=== PATIENT | female | born 1950 | race Caucasian/White ===

== ENCOUNTER 2020-06-07 14:28 | Inpatient (IN) | payer MEDICARE, SELFPAY ==
[2020-06-07 14:34] VITALS: BP 113/40; PULSE 69; RESP 22; TEMP 36.9; O2SAT 100; BMI 24.1
--- NOTE | 2020-06-07 14:35 | CT_ITS ---
EXAMINATION: CT ABDOMEN AND PELVIS WITHOUT CONTRAST CLINICAL INFORMATION: Left flank pain. Evaluate for kidney stone. COMPARISON: None TECHNIQUE: Multidetector volumetric imaging was performed from the superior aspect of the liver through the pubic symphysis. Sagittal and coronal reformatted images were obtained on the technologist's workstation. This CT examination was performed using dose optimization techniques as appropriate, variously including the following: *Automated exposure control *Adjustment of mA and/or kV according to patient size (this includes techniques or standardized protocols for targeted exams where dose is matched to indication/reason for exam; i.e. extremities or head) *Use of iterative reconstruction technique DLP: 390 mGy-cm FINDINGS: LUNG BASES: Mild atelectasis in dependent aspect of right lower lobe. No pulmonary consolidation or pleural effusion at either lung base. LIVER: The liver has normal size, shape, and attenuation. No focal liver lesion. GALLBLADDER AND BILIARY TREE: No radiopaque gallstones, wall thickening or pericholecystic fluid. No intrahepatic or extrahepatic bile duct dilatation. PANCREAS: Normal. No evidence of pancreatic ductal dilatation or mass. SPLEEN: Normal. ADRENAL GLANDS: Normal. KIDNEYS AND URETERS: Kidneys are normal in size. No right or left renal calculi. Mild left hydroureteronephrosis is caused by a stone measuring up to 0.4 cm in the distal ureter, located 1 cm above the level of the ureterovesical junction. BOWEL AND PERITONEUM: Stomach is unremarkable. No dilated loops of bowel. There appears to be prior appendectomy with small residual appendiceal stump. No focal bowel wall thickening or mesenteric fat stranding. No ascites or pneumoperitoneum. ABDOMINAL WALL: Unremarkable. VASCULATURE: Mild atherosclerosis of the abdominal aorta without aneurysm. LYMPH NODES: No pathologic sized lymph nodes in the abdomen or pelvis. No inguinal lymphadenopathy. BLADDER AND PELVIC VISCERA: The urinary bladder has a normal appearance. No bladder calculi. There are a few calcified intramural leiomyomas of the uterus. No adnexal mass. No pelvic free fluid. SKELETAL: Bones appear to be diffusely osteopenic. Transitional lumbosacral anatomy. 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 Tarlov cyst of the sacrum. No suspicious bone lesion. CT/CT abdomen pelvis wo con IMPRESSION: * Mild left hydronephrosis is caused by 0.4 cm calculus located just proximal to the ureterovesical junction. * No evidence of inflammatory change or obstruction along the gastrointestinal tract. * The uterus has a few intramural leiomyomas. * Transitional lumbosacral anatomy, severe facet osteoarthritis and degenerative, grade 1 anterolisthesis of L5 on S1.
--- NOTE | 2020-06-07 14:39 | ED.ABDPAIN ---
HPI - Abdominal Pain General Chief Complaint: Abdominal Pain Stated Complaint: flank pain Time Seen by Provider: 06/07/20 14:35 Source: patient and EMS Mode of arrival: EMS Limitations: no limitations History of Present Illness HPI narrative: 69-year-old female brought in by ambulance for left-sided flank/groin pain, pain started 1 hour before arrival as a sudden onset in the left groin area that radiated to the left flank area, pain is constant for 1 hour, associated with nausea and vomiting, pain was described as severe and dull 03/06, nothing relieved the pain, nothing makes the pain worse. Patient had similar pain when she had history of kidney stones, patient received 60 microg of fentanyl by EMS with no relief of her symptoms. Related Data Home Medications Medication Instructions Recorded Confirmed No Known Home Meds 06/07/20 06/07/20 Allergies Allergy/AdvReac Type Severity Reaction Status Date / Time Penicillins [PENICILLINS] Allergy Unknown RASH Unverified 03/13/20 18:28 Review of Systems Review of Systems All other systems are reviewed and are negative Constitutional: Reports as per HPI and Reports no additional constitutional complaints Eyes: Reports as per HPI and Reports no additional eye complaints Reports system reviewed and no additional complaints, except as documented Cardiovascular: Reports as per HPI and Reports no additional cardiovascular complaints Respiratory: Reports as per HPI and Reports no additional respiratory complaints Gastrointestinal: Reports as per HPI and Reports no additional gastrointestinal complaints Genitourinary: Reports no additional female genitourinary complaints Musculoskeletal: Reports no additional musculoskeletal complaints Skin/Breast: Reports system reviewed and no additional complaints, except as docu Psychiatric: Reports no additional psychiatric complaints Endocrine: Reports no additional endocrine complaints Hematologic/Lymphatic: Reports no additional hematologic/lymphatic complaints Allergic/Immunologic: Reports no additional allergic/immunologic complaints Reports system reviewed and no additional complaints, except as documented and Reports Abnormal speech present Physical Exam Vital Signs: Vital Signs: Last Vital Signs Temp 98.4 F 06/07/20 14:34 Pulse 69 06/07/20 14:34 Resp 22 H 06/07/20 16:36 BP 113/40 L 06/07/20 14:34 Pulse Ox 100 06/07/20 14:34 Body Mass Index 24.1 Vital signs have been reviewed as normal and appeared to be correct. Blood pressure normal. Heart rate normal. Respiration rate normal. Temperature normal. Oxygen saturation normal. Appearance: Alert. Oriented X3. In acute distress due to left flank pain.. Head: Normal external exam. Normocephalic. Atraumatic. No Pradhan signs noted. No raccoon eyes noted Eyes: PERRLA. EOMI. Conjunctiva and sclera normal. Eyelids normal. ENT: EAC normal. TM's Normal. Pharynx normal. Uvula midline. Moist mucous membranes. No trismus noted. No drooling noted. No muffled voice noted. Neck: Normal inspection. Neck supple. FROM. No adenopathy. Thyroid Normal. No meningeal signs. No neck mass noted. CVS: Normal heart rate and rhythm. Heart sound normal. No murmurs noted. Pulses normal throughout. Respiratory: No respiratory distress. Painless inspiration. Breath sounds normal. No wheezes/rales/rhonchi noted. Chest nontender. No accessory muscle usage noted or decreased air movement noted. Abdomen: Soft and nontender. Bowel sounds normal in all 4 quadrants. No distention noted. No organomegaly noted. No visible injury noted. Back: Significant left CVA tenderness. Full range of motion noted. Skin: Skin warm and dry. Normal skin color. Normal skin turgor. No rashes/lesions/lacerations noted. Extremities: No lower extremity edema. Extremities exhibit normal range of motion. Extremities nontender. Neuro: Oriented X 3. No motor deficit. No sensory deficit. Reflexes normal. MDM - Abdominal Pain MDM Narrative Medical decision making narrative: Assessment and plan. 69-year-old female with history of kidney stone presented with left flank pain, CT of the abdomen pelvis showed 4 mm left UVJ stone with hydronephrosis, patient showing no sign of UTI or infection. Leukocytosis and tachypnea is likely due to pain. Patient required multiple doses of fentanyl/Dilaudid/Toradol and patient will require inpatient pain control and urological procedure in the a.m.. The case discussed with Dr. Warner from Urology who agreed to admit to Medicine and he will consult. Lab Data Result diagrams: 06/07/20 15:45 06/07/20 15:45 Labs: Lab Results 06/07/20 06/07/20 06/07/20 Range/Units 15:45 15:45 16:08 WBC 13.3 H (4.8-10.8) X10*3/uL RBC 3.83 L (4.20-5.50) X10*6/uL Hgb 12.0 (12.0-16.0) g/dl Hct 36.0 L (37-47) % MCV 94.0 (80-98) fL MCH 31.3 (27.0-33.0) pg MCHC 33.3 (31.0-35.0) g/dl RDW 12.2 (11.0-16.0) % Plt Count 326 (160-400) X10*3/uL MPV 9.4 (9.4-12.3) fL Immature Gran % (Auto) 0.3 (0.0-0.4) % Neut % (Auto) 84.0 H (45-73) % Lymph % (Auto) 9.8 L (20-40) % [place] % (Auto) 3.9 (2-11) % Eos % (Auto) 1.5 (0-4) % Baso % (Auto) 0.5 (0-2) % Lymph # (Auto) 1.3 (1.2-4.9) X10*3/uL [place] # (Auto) 0.5 (0.1-1.2) X10*3/uL Eos # (Auto) 0.2 (0.0-0.4) X10*3/uL Baso # (Auto) 0.1 (0.0-0.2) X10*3/uL Abs Immat Gran (auto) 0.04 H (0.00-0.03) X10*3/uL Absolute Neuts (auto) 11.2 H (2.0-8.3) X10*3/uL Absolute Nucleated RBC 0.000 (0.0-0.012) X10*3/uL Nucleated RBC % (auto) 0.0 (0.0-0.2) /100WBC Sodium 136 (135-145) mmol/L Potassium 4.6 (3.3-5.1) mmol/l Chloride 105 (96-108) mmol/L Carbon Dioxide 25 (22-29) mmol/L Anion Gap 11 L (12-20) BUN 13 (9-16) mg/dL Creatinine 0.69 (0.5-1.4) mg/dL Estim Creat Clear Calc 62.6 Estimated GFR > 60 Random Glucose 98 (60-115) mg/dL Calcium 8.2 L (8.4-10.2) mg/dL Total Bilirubin 0.4 (0.0-1.0) mg/dL Direct Bilirubin 0.2 (0.0-0.5) mg/dL AST 19 (5-31) U/L ALT 22 (0-31) U/L Alkaline Phosphatase 66 (39-117) U/L Total Protein 6.2 L (6.5-8.0) g/dL Albumin 3.9 (3.5-5.0) g/dL Lipase 25 (8-78) U/L Urine Color YELLOW Urine Appearance CLEAR Urine pH 5.5 (5.0-8.0) Ur Specific [place] 1.025 (1.005-1.025) Urine Protein NEG (NEG-TRACE) MG/DL Urine Glucose (UA) NEG (NEG) MG/DL Urine Ketones 40 (NEG) MG/DL Urine Blood 3+ H (NEG) Urine Nitrite NEG (NEG) Ur Leukocyte Esterase NEG (NEG) Urine RBC 15-29 H (0) /HPF Urine WBC 0-2 (0-4) /HPF Ur Squamous Epith Cells NONE /LPF Urine Bacteria NONE /LPF Urine Mucus 1+ /LPF Imaging Data CT scan - abdomen: Radiologist's impression: * Mild left hydronephrosis is caused by 0.4 cm calculus located just proximal to the ureterovesical junction. * No evidence of inflammatory change or obstruction along the gastrointestinal tract. * The uterus has a few intramural leiomyomas. * Transitional lumbosacral anatomy, severe facet osteoarthritis and degenerative, grade 1 anterolisthesis of L5 on S1 Discharge Plan Discharge Clinical Impression: Calculus of kidney Patient Disposition: Admitted As Inpatient Prescriptions: No Action No Known Home Meds RF: 0 PMFSH Past Medical History Medical History Cervical cancer Kidney calculi PFO (patent foramen ovale) Social History Social History Advance Directives: No Advance Directives Information Provided: No
[2020-06-07] MEDS: 0.9 % Sodium Chloride 1,000 ML 999 ML IVCONT ×3 (14:50→17:04)
[2020-06-07] MEDS: ondansetron HCL 4 MG/2 ML VIAL IVPUSH (14:50)
[2020-06-07] MEDS: Ketorolac Tromethamine 15 MG/ML VIAL IV ×2 (14:51→20:30)
[2020-06-07] MEDS: HYDROmorphone HCl 1 MG/ML SYRINGE IVPUSH ×2 (14:51→16:36)
[2020-06-07 15:51] LABS: Basophils Absolute Auto 0.1 X10*3/uL (0.0-0.2); Basophils Percent Auto 0.5 % (0-2); Eosinophils Absolute Auto 0.2 X10*3/uL (0.0-0.4); Eosinophils Percent Auto 1.5 % (0-4); Imm Gran Abs Auto 0.04 X10*3/uL (0.00-0.03); Imm Gran Pct Auto 0.3 % (0.0-0.4); Lymphocytes Absolute Auto 1.3 X10*3/uL (1.2-4.9); Lymphocytes Percent Auto 9.8 % (20-40); MANUAL DIFF FLAG NO; Mean Corpuscular HGB Conc 33.3 g/dl (31.0-35.0); Mean Corpuscular Hemoglobin 31.3 pg (27.0-33.0); Mean Platelet Volume 9.4 fL (9.4-12.3); Monocytes Absolute Auto 0.5 X10*3/uL (0.1-1.2); Monocytes Percent Auto 3.9 % (2-11); Neutrophils Absolute Auto 11.2 X10*3/uL (2.0-8.3); Platelet Count 326 X10*3/uL (160-400); Red Blood Count 3.83 X10*6/uL (4.20-5.50); Red Cell Distribution Width 12.2 % (11.0-16.0); White Blood Count 13.3 X10*3/uL (4.8-10.8)
[2020-06-07 16:16] LABS: Appearance Urine CLEAR; Color Urine YELLOW; Glucose Urine UA NEG (NEG); Leukocyte Esterase Urine NEG (NEG); Nitrite Urine NEG (NEG); PH 5.5 (5.0-8.0); Specific Gravity - Urine 1.025 (1.005-1.025); Urine Blood 3+ (NEG); Urine Ketones 40 MG/DL (NEG); Urine Protein NEG (NEG-TRACE)
[2020-06-07 16:26] LABS: Alanine Aminotransferase 22 U/L (0-31); Albumin Level 3.9 g/dL (3.5-5.0); Alkaline Phosphatase 66 U/L (39-117); Anion Gap 11 (12-20); Aspartate Amino Transferase 19 U/L (5-31); Bilirubin Direct 0.2 mg/dL (0.0-0.5); Bilirubin Total 0.4 mg/dL (0.0-1.0); Blood Urea Nitrogen 13 mg/dL (9-16); Calcium 8.2 mg/dL (8.4-10.2); Carbon Dioxide 25 mmol/L (22-29); Chloride 105 mmol/L (96-108); Creatinine Clr Calc Pharmacy 62.6; Estimated Glomerular Filt Rate > 60; Glucose Random 98 mg/dL (60-115); Lipase 25 U/L (8-78); Potassium 4.6 mmol/l (3.3-5.1); Sodium 136 mmol/L (135-145); Total Protein 6.2 g/dL (6.5-8.0)
[2020-06-07 16:29] LABS: Mucus Urine 1+ /LPF
[2020-06-07 16:30] LABS: WBC Urine 0-2 /HPF (0-4)
[2020-06-07 16:36] VITALS: RESP 22
--- NOTE | 2020-06-07 17:02 | PM.EVENT ---
Event Note Date of Service: 06/07/20 Event Note: Patient seen and examined independently and was present during castaneda portion of E/M service. Agree with midlevel's history, physical, assessment, and plan. 69F presented with left flank pain nephrolithiasis pain control, IVF, npo after midnight, flomax
[2020-06-07 17:07] VITALS: RESP 16
[2020-06-07 17:30] LABS: COVID-19 Test Negative (Negative); IDNOW Serial# 9DD0AD1C
--- NOTE | 2020-06-07 17:32 | P.HPHOSP_ITS ---
History of Present Illness Date of Service: 06/07/20 Chief Complaint: Left flank pain This is a 69-year-old female who presented to the emergency department today with history of left flank pain. She reports the pain started suddenly about 2 hours before she presented to the emergency department. She reports associated nausea, vomiting, chills. She denies any dysuria, hematuria, fever. Her pain is severe and has required multiple doses of narcotics. It is located in the left flank and wraps around toward the left groin.Lab work was significant for leukocytosis of 13.3. The remainder of her lab work was unremarkable she underwent a CT scan of the abdomen which showed mild left hydronephrosis and 4 mm calculus located proximal to the ureterovesicular junction. Emergency room provider discussed the case with Urology who felt the patient should be admitted to the medical service and they would consult in the morning. Review of Systems Review of Systems: Yes all other systems are reviewed and are negative Constitutional: Constitutional: Reports chills and Denies fever(s) Cardiovascular: Cardiovascular: Denies chest pain Respiratory: Respiratory: Denies cough Genitourinary: Genitourinary: Denies dysuria, Reports flank pain, Denies urinary incontinence, Denies urinary hesitancy and Denies urinary urgency [facility] Medical History Cervical cancer Kidney calculi PFO (patent foramen ovale) Family History (Updated 06/07/20 @ 17:41 by LUCHO Thacker) Father Heart disease Surgical History (Updated 06/07/20 @ 17:41 by LUCHO Thacker) History of appendectomy Social History (Updated 06/07/20 @ 17:41 by LUCHO Thacker) Alcohol intake: current Alcohol intake frequency: a few times a week Smoking Status: Never smoker Smoked in Last 30 Days: No Use of substances other than those prescribed or required for medical reasons: Yes Substance Use Type: Marijuana Advance Directives: No Advance Directives Information Provided: No Meds Allergies Allergy/AdvReac Type Severity Reaction Status Date / Time Penicillins [PENICILLINS] Allergy Unknown RASH Unverified 03/13/20 18:28 Home Medications Medication Instructions Recorded Confirmed Type No Known Home Meds 06/07/20 06/07/20 History Physical Exam Vital Signs and Narrative: Vital Signs: Last Vital Signs Temp 98.4 F 06/07/20 14:34 Pulse 69 06/07/20 14:34 Resp 16 06/07/20 17:07 BP 113/40 L 06/07/20 14:34 Pulse Ox 100 06/07/20 14:34 Body Mass Index 24.1 Const: Other: appears uncomfortable Nutritional Appearance: well nourished Orientation/consciousness: patient oriented x3 HENMT: Head: Yes normocephalic and Yes atraumatic Eyes: Sclerae: sclerae normal Chest: Chest palpation & inspection: normal inspection of the chest Resp: Effort & Inspection: normal respiratory effort and no respiratory distress Auscultation: clear to auscultation bilaterally Cardio: Rate: regular rate Rhythm: regular rhythm GI: Palpation (GI): Soft to palpation : General: Yes CVA tenderness on the left Back/Spine/Pelvis: Back: CVA tenderness Skin: General skin exam: no rashes or lesions noted Neuro: General: patient oriented x3 Cranial nerves: Yes CN's II-XII intact bilaterally and Yes Bilaterally intact EOM present Extrem: General: Yes normal to inspection Results Labs CBC and Chem 7: 06/07/20 15:45 06/07/20 15:45 Labs: Laboratory Results - last 24 hr 06/07/20 06/07/20 06/07/20 15:45 15:45 16:08 MCV 94.0 MCH 31.3 MCHC 33.3 RDW 12.2 Plt Count 326 MPV 9.4 Immature Gran % (Auto) 0.3 Neut % (Auto) 84.0 H Lymph % (Auto) 9.8 L [place] % (Auto) 3.9 Eos % (Auto) 1.5 Baso % (Auto) 0.5 Lymph # (Auto) 1.3 [place] # (Auto) 0.5 Eos # (Auto) 0.2 Baso # (Auto) 0.1 Abs Immat Gran (auto) 0.04 H Absolute Neuts (auto) 11.2 H Absolute Nucleated RBC 0.000 Nucleated RBC % (auto) 0.0 Anion Gap 11 L Estim Creat Clear Calc 62.6 Estimated GFR > 60 Random Glucose 98 Calcium 8.2 L Total Bilirubin 0.4 Direct Bilirubin 0.2 AST 19 ALT 22 Alkaline Phosphatase 66 Total Protein 6.2 L Albumin 3.9 Lipase 25 Urine Color YELLOW Urine Appearance CLEAR Urine pH 5.5 Ur Specific [place] 1.025 Urine Protein NEG Urine Glucose (UA) NEG Urine Ketones 40 Urine Blood 3+ H Urine Nitrite NEG Ur Leukocyte Esterase NEG Urine RBC 15-29 H Urine WBC 0-2 Ur Squamous Epith Cells NONE Urine Bacteria NONE Urine Mucus 1+ COVID-19 (S[facility]ILA) COVID-19 Clin Com 06/07/20 17:02 MCV MCH MCHC RDW Plt Count MPV Immature Gran % (Auto) Neut % (Auto) Lymph % (Auto) [place] % (Auto) Eos % (Auto) Baso % (Auto) Lymph # (Auto) [place] # (Auto) Eos # (Auto) Baso # (Auto) Abs Immat Gran (auto) Absolute Neuts (auto) Absolute Nucleated RBC Nucleated RBC % (auto) Anion Gap Estim Creat Clear Calc Estimated GFR Random Glucose Calcium Total Bilirubin Direct Bilirubin AST ALT Alkaline Phosphatase Total Protein Albumin Lipase Urine Color Urine Appearance Urine pH Ur Specific [place] Urine Protein Urine Glucose (UA) Urine Ketones Urine Blood Urine Nitrite Ur Leukocyte Esterase Urine RBC Urine WBC Ur Squamous Epith Cells Urine Bacteria Urine Mucus COVID-19 (SHEILA) Negative COVID-19 Clin Com See Note Imaging Radiologist's Impressions: Impressions Abdomen/Pelvis CT 06/07/20 14:35 IMPRESSION: * Mild left hydronephrosis is caused by 0.4 cm calculus located just proximal to the ureterovesical junction. * No evidence of inflammatory change or obstruction along the gastrointestinal tract. * The uterus has a few intramural leiomyomas. * Transitional lumbosacral anatomy, severe facet osteoarthritis and degenerative, grade 1 anterolisthesis of L5 on S1. Assessment and Plan (1) Calculus of kidney: Status: Acute This is a 69-year-old female with no significant past medical history presents to the emergency department left-sided flank pain found to have kidney stone Left-sided kidney stone mild hydronephrosis -Flomax -pain control -IV fluid -urology consult Leukocytosis. likely reactive UA negative no evidence of sepsis DVT prophylaxis-mechanical devices Code status-full code This case was discussed with Dr. Davis
--- NOTE | 2020-06-07 18:42 | PC.NURSE ---
call to med surg
[2020-06-07 20:00] VITALS: BP 118/52; PULSE 70; RESP 14; TEMP 36.7; O2SAT 97
[2020-06-07] MEDS: 0.9 % Sodium Chloride 1,000 ML 125 ML IVCONT (20:21)
[2020-06-07] MEDS: Tamsulosin HCL 0.4 MG CAPSULE PO (20:22)
[2020-06-07] MEDS: methylPREDNISolone Sod Succ/PF 125 MG/2 ML VIAL IVPUSH ×2 (20:22→20:29)
[2020-06-07] MEDS: HYDROmorphone HCl 0.5 MG/0.5 ML SYRINGE IVPUSH (22:31)
[2020-06-07 23:40] VITALS: BP 114/58; PULSE 78; RESP 19; TEMP 36.7; O2SAT 94
[2020-06-08] MEDS: Ketorolac Tromethamine 15 MG/ML VIAL IV ×4 (02:53→21:12)
[2020-06-08] MEDS: 0.9 % Sodium Chloride 1,000 ML 125 ML IVCONT ×2 (02:54→16:00)
[2020-06-08 03:18] VITALS: BP 106/61; PULSE 87; RESP 19; TEMP 36.2; O2SAT 94
[2020-06-08 07:41] VITALS: BP 98/56; PULSE 80; RESP 18; TEMP 532.1; TEMP 989.7; O2SAT 98
[2020-06-08 07:48] LABS: MANUAL DIFF FLAG NO
[2020-06-08 07:51] LABS: Basophils Percent Auto 0.2 % (0-2); Eosinophils Percent Auto 0.2 % (0-4); Hemoglobin 12.5 g/dl (12.0-16.0); Imm Gran Abs Auto 0.04 X10*3/uL (0.00-0.03); Imm Gran Pct Auto 0.6 % (0.0-0.4); Lymphocytes Percent Auto 15.7 % (20-40); Mean Corpuscular HGB Conc 33.8 g/dl (31.0-35.0); Mean Corpuscular Hemoglobin 31.8 pg (27.0-33.0); Mean Corpuscular Volume 94.1 fL (80-98); Mean Platelet Volume 9.5 fL (9.4-12.3); Monocytes Absolute Auto 0.1 X10*3/uL (0.1-1.2); Monocytes Percent Auto 1.1 % (2-11); Neutrophils Absolute Auto 5.4 X10*3/uL (2.0-8.3); Neutrophils Percent Auto 82.2 % (45-73); Platelet Count 362 X10*3/uL (160-400); Red Blood Count 3.93 X10*6/uL (4.20-5.50); Red Cell Distribution Width 12.2 % (11.0-16.0); White Blood Count 6.6 X10*3/uL (4.8-10.8)
[2020-06-08] MEDS: HYDROmorphone HCl 0.5 MG/0.5 ML SYRINGE IVPUSH ×3 (08:14→22:08)
[2020-06-08] MEDS: Butalb/Acetamin/Caff 50/325/40 TABLET 1 TAB PO (08:14)
[2020-06-08 08:17] LABS: Anion Gap 16 (12-20); Blood Urea Nitrogen 10 mg/dL (9-16); Carbon Dioxide 22 mmol/L (22-29); Chloride 107 mmol/L (96-108); Creatinine Clr Calc Pharmacy 59.9; Estimated Glomerular Filt Rate > 60; Glucose Random 137 mg/dL (60-115); Potassium 4.6 mmol/l (3.3-5.1); Sodium 140 mmol/L (135-145)
[2020-06-08 08:40] LABS: Calcium 8.7 mg/dL (8.4-10.2)
--- NOTE | 2020-06-08 10:00 | HO.PM.IMPN ---
Subjective Subjective Date of Service: 06/08/20 Interval History: pain improved Cardiovascular Cardiovascular: Reports no additional cardiovascular complaints Gastrointestinal Gastrointestinal: Reports no additional gastrointestinal complaints Physical Exam Vital Signs: Vital Signs: Last Vital Signs Temp 989.7 F H 06/08/20 07:41 Pulse 80 06/08/20 07:41 Resp 18 06/08/20 07:41 BP 98/56 L 06/08/20 07:41 Pulse Ox 98 06/08/20 07:41 Body Mass Index 24.1 General: AO X 3, no acute distress Resp: CTA bilateral CVS: S1,S2,RRR GI: soft, non tender, non distended Neuro: motor grossly intact Psych: appropriate affect Objective Data Current Medications Generic Name Dose Route Start Last Admin Trade Name Freq PRN Reason Stop Dose Admin Acetaminophen 650 mg 06/07/20 17:09 Acetaminophen 325 Mg Tablet PO Q6H PRN Pain, Mild (Pain Scale 1-3) Docusate Sodium 100 mg 06/07/20 19:56 Docusate Sodium 100 Mg Capsule PO DAILY PRN Constipation Hydromorphone HCl 0.5 mg 06/07/20 17:10 06/08/20 08:14 Hydromorphone Hcl 0.5 Mg/0.5 Ml Syringe IVPUSH 0.5 mg Q4H PRN Administration Pain, Severe (Pain Scale 7-10) Sodium Chloride 1,000 mls @ 125 mls/hr 06/07/20 17:15 06/08/20 02:54 Ns IVCONT 125 mls/hr .Q8H MICHAEL Administration Ketorolac Tromethamine 15 mg 06/07/20 14:45 06/08/20 02:53 Ketorolac Tromethamine 15 Mg/Ml Vial IV 15 mg Q6H MICHAEL Administration Ondansetron HCl 4 mg 06/07/20 17:09 Ondansetron Hcl 4 Mg/2 Ml Vial IVPUSH Q8H PRN Nausea and Vomiting Sodium Chloride 3 ml 06/08/20 00:00 06/08/20 08:19 0.9 % Sodium Chloride Flush 3 Ml Syringe IVFLUSH Not Given QSHIFT MICHAEL Tamsulosin HCl 0.4 mg 06/07/20 17:10 06/07/20 20:22 Tamsulosin Hcl 0.4 Mg Capsule PO 0.4 mg DAILY MICHAEL Administration Labs CBC & Chem 7: 06/08/20 07:21 06/08/20 07:21 Assessment and Plan (1) Calculus of kidney: Status: Acute Assessment and Plan: This is a 69-year-old female with no significant past medical history presents to the emergency department left-sided flank pain found to have kidney stone Left-sided kidney stone mild hydronephrosis continue: -Flomax -pain control -IV fluid -urology to see Leukocytosis. likely reactive UA negative no evidence of sepsis
[2020-06-08] MEDS: Tamsulosin HCL 0.4 MG CAPSULE PO (10:09)
[2020-06-08 12:00] VITALS: BP 99/50; PULSE 62; RESP 18; TEMP 36; O2SAT 98
[2020-06-08] MEDS: Docusate Sodium 100 MG CAPSULE PO (12:40)
--- NOTE | 2020-06-08 12:57 | MHC.CM.PN ---
Pt reports she lives at home with her and daughter. Pt reports she is fully independent, has no services and no DME. Pt reports she has a [facility] that names her and daughter as her agents, she also requested blank HCPs to bring home (2). Pt reports she typically drives herself to appointments however she is currently awaiting eye surgery so has no been driving. Pts will provide transport at DC. Current DC plan is home with no services IMM delivered and blank HCPs provided.
[2020-06-08 14:40] VITALS: BP 114/64; PULSE 59; RESP 14; TEMP 36.4; O2SAT 98
[2020-06-08 15:33] VITALS: BP 92/49; PULSE 79; RESP 18; TEMP 36.1; O2SAT 98
[2020-06-08 19:34] VITALS: BP 101/50; PULSE 76; RESP 19; TEMP 36.7; O2SAT 98
[2020-06-09] VITALS (12 sets, daily range): BP systolic 100–141; BP diastolic 49–89; PULSE 53–70; RESP 12–20; TEMP 36.2–36.8; O2SAT 96–100
[2020-06-09] MEDS: 0.9 % Sodium Chloride 1,000 ML 125 ML IVCONT ×2 (00:17→09:25)
[2020-06-09] MEDS: Ketorolac Tromethamine 15 MG/ML VIAL IV ×2 (02:46→09:25)
--- NOTE | 2020-06-09 07:52 | PM.UROCN ---
History of Present Illness Consult details Consult date: 06/09/20 Narrative: 69-year-old female. Presents through emergency department 06/08/2020. Noted to have left flank pain. Reports pain had been present for number of days but severe in the previous few hours for admission to the emergency department. Associated with nausea vomiting and chills. Denies hematuria or fever. CT scan shows a 4 mm distal left ureteric calculus with mild to moderate hydroureteronephrosis. Prior history of stones in distant past. Has not had any active issues in the prior 5 years. Is comfortable with pain medication in facility. Does not think distal stone has passed. Discussed options for intervention. Based on location would recommend ureteroscopy laser lithotripsy and stent placement. Questions were answered Review of Systems Review of Systems: Yes all other systems are reviewed and are negative [facility] Past Medical History Medical History (Updated 06/09/20 @ 07:55 by Terrence Warner MD) Cervical cancer Kidney calculi PFO (patent foramen ovale) Family History Family History (Updated 06/07/20 @ 17:41 by LUCHO Thacker) Father Heart disease Surgical History Surgical History (Updated 06/07/20 @ 17:41 by LUCHO Thacker) History of appendectomy Social History Social History (Updated 06/07/20 @ 17:41 by LUCHO Thacker) Household Members: Spouse Housing: House Do you presently have visiting nurse or other home services: No Alcohol intake: current Alcohol intake frequency: a few times a week Smoking Status: Never smoker Smoked in Last 30 Days: No Use of substances other than those prescribed or required for medical reasons: Yes Substance Use Type: Marijuana Currently Displaying Signs/Symptoms of Drug Intoxication Withdrawal: No Have you been hit, kicked, punched, or otherwise hurt by someone within the past year? If so, by whom?: No Do you feel safe in your current relationship?: Yes Is there a partner from a previous relationship who is making you feel unsafe now?: No Are you made to feel afraid or neglected: No Advance Directives: No Advance Directives Information Provided: No Do you have thoughts of harming others: None Do you have a plan to hurt others: No Plan Recently lost weight without trying: No service: No Current occupational status: employed Meds Allergies Allergy/AdvReac Type Severity Reaction Status Date / Time Penicillins [PENICILLINS] Allergy Unknown RASH Verified 06/08/20 03:04 Home Medications Medication Instructions Recorded Confirmed Type No Known Home Meds 06/07/20 06/07/20 History Physical Exam Vital Signs: Vital Signs: Last Vital Signs Temp 97.9 F 06/09/20 03:19 Pulse 70 06/09/20 03:19 Resp 16 06/09/20 03:19 BP 100/65 06/09/20 03:19 Pulse Ox 96 06/09/20 03:19 Body Mass Index 24.1 Const: General: cooperative, healthy appearing, comfortable and no acute distress Nutritional Appearance: average body habitus Orientation/consciousness: oriented to person, oriented to place and oriented to time Eyes: General: appearance normal, both eyes and all related structures Chest: Chest palpation & inspection: normal inspection of the chest Resp: Effort & Inspection: normal respiratory effort Cardio: Rate: regular rate GI: Inspection: Yes normal to inspection Skin: Hair: normal Neuro: General: oriented to person, oriented to place and oriented to time Extrem: General: Yes normal to inspection Results Labs Result diagrams: 06/08/20 07:21 06/08/20 07:21 Labs: Abnormal lab results 06/08/20 06/08/20 Range/Units 07:21 07:21 RBC 3.93 L (4.20-5.50) X10*6/uL Immature Gran % (Auto) 0.6 H (0.0-0.4) % Neut % (Auto) 82.2 H (45-73) % Lymph % (Auto) 15.7 L (20-40) % [place] % (Auto) 1.1 L (2-11) % Lymph # (Auto) 1.0 L (1.2-4.9) X10*3/uL Abs Immat Gran (auto) 0.04 H (0.00-0.03) X10*3/uL Random Glucose 137 H D (60-115) mg/dL Short CBC 06/08/20 Range/Units 07:21 WBC 6.6 (4.8-10.8) X10*3/uL Hgb 12.5 (12.0-16.0) g/dl Hct 37.0 (37-47) % Plt Count 362 (160-400) X10*3/uL BMP 06/08/20 07:21 Sodium 140 Potassium 4.6 Chloride 107 Carbon Dioxide 22 BUN 10 Creatinine 0.72 Calcium 8.7 D Urine 06/07/20 Range/Units 16:08 Urine Color YELLOW Urine Appearance CLEAR Urine pH 5.5 (5.0-8.0) Ur Specific [place] 1.025 (1.005-1.025) Urine Protein NEG (NEG-TRACE) MG/DL Urine Glucose (UA) NEG (NEG) MG/DL All other labs normal. CT/CT abdomen pelvis wo con IMPRESSION: * Mild left hydronephrosis is caused by 0.4 cm calculus located just proximal to the ureterovesical junction. Assessment and Plan (1) Calculus of kidney: Status: Acute (2) Ureteral stone with hydronephrosis: Status: Acute Plan for renal intervention Ureteroscopy We discussed the nature of the decision and reasonable alternatives for performing the above surgery. Interventions include chemical dissolution, ESWL, ureteroscopy with laser lithotripsy and stent placement, PCNL. Options such as medical therapy were discussed. The relative uncertainties and benefits related to each alternate procedure were adequately discussed. General surgical risks including, but not limited to, pain, bleeding, infection, myocardial infarction, pulmonary embolus, deep vein thrombosis and cerebrovascular accident which may result in further hospitalization were discussed. Full disclosure of the procedure as well as all major risks, benefits and complications were discussed including but not limited to damage to the urethra, bladder and kidney infection, damage to the ureter, stent migration or malposition, scarring to the renal pelvis, remnant stone fragments, subsequent stone passage with need for secondary procedures. The overall secondary procedure rate is approximately 10-15%. The success rate of the procedure was discussed. Success of the procedure in the short-term does not necessarily guarantee that long-term success will be maintained. Suitable follow up will need to be maintained. The patient showed understanding of discussion and wishes to proceed with - cystoscopy, retrograde, ureteroscopy, possible lithotripsy/stone basketing and stent on the left side
[2020-06-09] MEDS: 0.9 % Sodium Chloride Flush 3 ML SYRINGE IVFLUSH (09:25)
--- NOTE | 2020-06-09 10:51 | MHC.SHP ---
Pre-Procedural Eval Section A The patient is an INPATIENT: Yes Changes since office visit: No Cold of Flu in the past 2 weeks, No New Medical Problems, No Changes in Medication and No Patient answered all questions The History & Physical has been completed within 30 days and I have reviewed it.: Yes Section B Chief Complaint: Kidney stone Allergies: Allergies Allergy/AdvReac Type Severity Reaction Status Date / Time Penicillins [PENICILLINS] Allergy Unknown RASH Verified 06/08/20 03:04 clindamycin AdvReac Nausea and Verified 06/09/20 10:07 Vomiting erythromycin base AdvReac Stomach Verified 06/09/20 10:07 Upset Plan Patient has been examined and remains a candidate for the planned procedure
--- NOTE | 2020-06-09 10:52 | FL_ITS ---
EXAMINATION: XR FLUOROSCOPY WITH IMAGES CLINICAL INFORMATION: Left ureteral calculus COMPARISON: CT abdomen and pelvis noncontrast 06/07/2020 TECHNIQUE: Fluoroscopy performed by Dr. Terrence Warner. Fluoroscopy time: 17 seconds. Total dose: 3.27 mGy Images: 2 FINDINGS: 2 spot views of the pelvis are obtained, the latter demonstrating left ureteral stent in position. FL/FL guidance in OR IMPRESSION: Fluoroscopy for urologic procedure.
--- NOTE | 2020-06-09 10:59 | P.CONAN_ITS ---
[facility] Past Medical History Medical History Cervical cancer Kidney calculi PFO (patent foramen ovale) Family History Family History (Updated 06/07/20 @ 17:41 by LUCHO Thacker) Father Heart disease Surgical History Surgical History (Updated 06/09/20 @ 10:05 by Loulou Magana RN) History of appendectomy Hx of eye surgery Social History Social History (Updated 06/07/20 @ 17:41 by LUCHO Thacker) Household Members: Spouse Housing: House Do you presently have visiting nurse or other home services: No Alcohol intake: current Alcohol intake frequency: a few times a week Smoking Status: Never smoker Smoked in Last 30 Days: No Use of substances other than those prescribed or required for medical reasons: Yes Substance Use Type: Marijuana Substance Use Frequency: Weekly Currently Displaying Signs/Symptoms of Drug Intoxication Withdrawal: No Have you been hit, kicked, punched, or otherwise hurt by someone within the past year? If so, by whom?: No Do you feel safe in your current relationship?: Yes Is there a partner from a previous relationship who is making you feel unsafe now?: No Are you made to feel afraid or neglected: No Advance Directives: No Advance Directives Information Provided: No Do you have thoughts of harming others: None Do you have a plan to hurt others: No Plan Recently lost weight without trying: No service: No Current occupational status: employed Meds Allergies Allergy/AdvReac Type Severity Reaction Status Date / Time Penicillins [PENICILLINS] Allergy Unknown RASH Verified 06/08/20 03:04 clindamycin AdvReac Nausea and Verified 06/09/20 10:07 Vomiting erythromycin base AdvReac Stomach Verified 06/09/20 10:07 Upset Home Medications Medication Instructions Recorded Confirmed Type No Known Home Meds 06/07/20 06/07/20 History Exam Exam Date and Time: June 09, 2020 1059 Height,Weight and Vital Signs: Height 5 ft 2 in Weight 59.874 kg Last Vital Signs Temp 97.4 F 06/09/20 10:08 Pulse 62 06/09/20 10:08 Resp 16 06/09/20 10:08 BP 118/49 L 06/09/20 10:08 Pulse Ox 99 06/09/20 10:08 Pertinent Lab Results Pertinent Lab Results: Laboratory Tests 06/07/20 06/07/20 06/07/20 15:45 15:45 16:08 WBC 13.3 H RBC 3.83 L Hgb 12.0 Hct 36.0 L MCV 94.0 MCH 31.3 MCHC 33.3 RDW 12.2 Plt Count 326 MPV 9.4 Immature Gran % (Auto) 0.3 Neut % (Auto) 84.0 H Lymph % (Auto) 9.8 L [place] % (Auto) 3.9 Eos % (Auto) 1.5 Baso % (Auto) 0.5 Lymph # (Auto) 1.3 [place] # (Auto) 0.5 Eos # (Auto) 0.2 Baso # (Auto) 0.1 Abs Immat Gran (auto) 0.04 H Absolute Neuts (auto) 11.2 H Absolute Nucleated RBC 0.000 Nucleated RBC % (auto) 0.0 Sodium 136 Potassium 4.6 Chloride 105 Carbon Dioxide 25 Anion Gap 11 L BUN 13 Creatinine 0.69 Estim Creat Clear Calc 62.6 Estimated GFR > 60 Random Glucose 98 Calcium 8.2 L Total Bilirubin 0.4 Direct Bilirubin 0.2 AST 19 ALT 22 Alkaline Phosphatase 66 Total Protein 6.2 L Albumin 3.9 Lipase 25 Urine Color YELLOW Urine Appearance CLEAR Urine pH 5.5 Ur Specific [place] 1.025 Urine Protein NEG Urine Glucose (UA) NEG Urine Ketones 40 Urine Blood 3+ H Urine Nitrite NEG Ur Leukocyte Esterase NEG Urine RBC 15-29 H Urine WBC 0-2 Ur Squamous Epith Cells NONE Urine Bacteria NONE Urine Mucus 1+ COVID-19 ([facility]) COVID-19 Clin Com 06/07/20 06/08/20 06/08/20 17:02 07:21 07:21 WBC 6.6 RBC 3.93 L Hgb 12.5 Hct 37.0 MCV 94.1 MCH 31.8 MCHC 33.8 RDW 12.2 Plt Count 362 MPV 9.5 Immature Gran % (Auto) 0.6 H Neut % (Auto) 82.2 H Lymph % (Auto) 15.7 L [place] % (Auto) 1.1 L Eos % (Auto) 0.2 Baso % (Auto) 0.2 Lymph # (Auto) 1.0 L [place] # (Auto) 0.1 Eos # (Auto) 0.0 Baso # (Auto) 0.0 Abs Immat Gran (auto) 0.04 H Absolute Neuts (auto) 5.4 Absolute Nucleated RBC 0.000 Nucleated RBC % (auto) 0.0 Sodium 140 Potassium 4.6 Chloride 107 Carbon Dioxide 22 Anion Gap 16 BUN 10 Creatinine 0.72 Estim Creat Clear Calc 59.9 Estimated GFR > 60 Random Glucose 137 H D Calcium 8.7 D Total Bilirubin Direct Bilirubin AST ALT Alkaline Phosphatase Total Protein Albumin Lipase Urine Color Urine Appearance Urine pH Ur Specific [place] Urine Protein Urine Glucose (UA) Urine Ketones Urine Blood Urine Nitrite Ur Leukocyte Esterase Urine RBC Urine WBC Ur Squamous Epith Cells Urine Bacteria Urine Mucus COVID-19 ([facility]) Negative COVID-19 Clin Com See Note Airway Mallampati Class: II TM Dist: >3cm Neck ROM: Full Loose/Missing/Broken Teeth: No Heart: [id number] Lungs: cta b/l Assessment and Plan Assessment Anesthesia Assessment: Anesthesia Plan Discussed, PAT Visit and Chart Reviewed Final Anesthetic Review NPO: Yes ASA Class: II Final Preanesthetic Review: No Changes in Pt Med Stat, Meds/Allgs Chart Reviewed, Consent Obtained/Reviewed and Anes Risks/Benef Reviewed Patient Risk: Low Procedure Risk: Low Assessment/Block/Sedation in SS: Assess/Block/Sedation-SS Anesthetic Plan Anesthetic Plan: GA Disposition: Standard PACU
[2020-06-09] MEDS: Lactated Ringers 1,000 ML 50 ML IVCONT (11:08)
[2020-06-09] MEDS: cefTRIAXone sodium 2 GM in 0.9 % Sodium Chloride 50 ML IV (11:10)
--- NOTE | 2020-06-09 11:41 | P.BOP_ITS ---
Brief Operative Note Date of Service: 06/09/20 Pre-op diagnosis: Left distal ureteric stone with hydronephrosis Post-op diagnosis: same Procedure: Cystoscopy with left retrograde, left ureteroscopy with laser lithotripsy, stone basketing, stent placement Implants: Six [place] by 22 cm stent Surgeon: Terrence Warner MD Anesthesia: GLMA Estimated blood loss (mL): 0 Pathology: other (Stone) Condition: stable Disposition: same day
--- NOTE | 2020-06-09 11:41 | MHC.SHP ---
Pre-Procedural Eval Section A The patient is an INPATIENT: Yes Changes since office visit: No Cold of Flu in the past 2 weeks, No New Medical Problems, No Changes in Medication and No Patient answered all questions Section B Chief Complaint: Kidney stone Allergies: Allergies Allergy/AdvReac Type Severity Reaction Status Date / Time Penicillins [PENICILLINS] Allergy Unknown RASH Verified 06/08/20 03:04 clindamycin AdvReac Nausea and Verified 06/09/20 10:07 Vomiting erythromycin base AdvReac Stomach Verified 06/09/20 10:07 Upset Plan Patient has been examined and remains a candidate for the planned procedure
--- NOTE | 2020-06-09 11:42 | W.PM.OPN ---
Operative Note Operative Note Date of Service: 06/09/20 Narrative: PreOperative Diagnosis: Left distal ureteric stone with hydronephrosis Post Operative Diagnosis: Left distal ureteric stone with hydronephrosis Procedure: - cystoscopy, retrograde - dilatation of ureteric orifice under fluoroscopy - ureteroscopy, laser lithotripsy, stone basketing - stent placement - left side Surgeon: Dr Terrence Warner Anesthesia: General Indications for procedure: This is a 69-year-old female. Presents to emergency room with left-sided flank pain that radiates around to abdomen. Imaging shows 4 mm distal left ureteric stone with hydroureteronephrosis. Did not passed stone after 24 hours in hospital. Recommendation for intervention with ureteroscopy, laser lithotripsy, stent placement. Risks and benefits have been discussed Procedure: After informed consent was verified patient was brought to the operating placed in supine position. Anesthesia was administered per protocol. Patient was placed in modified dorsal lithotomy position and prepped and draped in a sterile fashion. Safety pause time-out and side of surgery confirmed. Antibiotics confirmed. A 22 [place] cystoscope inserted per urethra. Of note her urethra was narrowed. This was dilated up to 23 [place] and then a 22 [place] cystoscope was placed. A retrograde examination performed on the left side. Small filling defect noted in distal portion of ureter. Sensor guidewire placed to level renal pelvis. The cystoscope was removed. A rigid ureteral scope was then placed alongside the wire. The stone was encountered. Using a 360 david meter laser fiber the stone was broken into small fragments. Using a flat wire basket the fragments were removed and sent for pathology. The ureter was examined notice more stone debris was seen. The rigid ureteral scope was removed. A 6 [place] by 22 cm double-J stent was placed without difficulty under direct and fluoroscopic guidance. She tolerated the procedure well was extubated in the operating room transferred in stable condition to the recovery area. Pathology: Stone Drains: 6 [place] by 22 cm double-J
[2020-06-09] MEDS: ondansetron HCL 4 MG/2 ML VIAL IVPUSH (12:50)
[2020-06-09] MEDS: Phenazopyridine HCL 100 MG TABLET PO (12:51)
[2020-06-09] MEDS: HYDROmorphone HCl 0.5 MG/0.5 ML SYRINGE IVPUSH (12:53)
--- NOTE | 2020-06-09 13:52 | P.DS_ITS ---
DS: Providers Provider Date of admission: 06/07/20 17:07 Primary care physician: Carrie Ford MD Consults: 06/07/20 17:07 Consult to Urology Routine Consulting Provider: Terrence Warner Reason for consultation: left side stone DS: Diagnosis Discharge Diagnosis (1) Calculus of kidney: Status: Acute (2) Ureteral stone with hydronephrosis: Status: Acute DS: Medications Discharge Medications Home Medications: Previous Rx's Medication Instructions Recorded tramadol 50 mg PO Q6H PRN #14 tab 06/09/20 DS: Summary Hospital Course Hospital Course: Patient was admitted for pain control for left nephrolithiasis and hydronephrosis. She was given IV fluids and Flomax and hydromorphone to good effect. She was seen by Urology performed ureteroscopy with laser lithotripsy, stone basketing, stent placement. Patient tolerated procedure well. Her pain has resolved. She will be discharged home. She will follow up with Urology as outpatient. Time Spent with Patient Time attestation: Total time spent providing and/or coordinating discharge services: Physical Exam Vital Signs: Vital Signs: Last Vital Signs Temp 98.2 F 06/09/20 13:00 Pulse 55 06/09/20 13:08 Resp 16 06/09/20 13:08 BP 127/68 06/09/20 13:08 Pulse Ox 100 06/09/20 13:08 Body Mass Index 24.1 General: AO X 3, no acute distress Resp: CTA bilateral CVS: S1,S2,RRR GI: soft, non tender, non distended Neuro: motor grossly intact Psych: appropriate affect DS: Data Data Completed and Pending Pending studies at discharge: Pending at discharge 06/09/20 11:48 Surgical [PTH] Routine Labs on day of discharge: 06/07/20 14:35 CT abdomen pelvis wo con Stat 06/07/20 14:37 HYDROmorphone HCl [Dilaudid] 1 mg IVPUSH ONCE ONE ondansetron HCL [Zofran] 4 mg IVPUSH ONCE ONE 06/07/20 14:45 0.9 % Sodium Chloride [Ns] 1,000 ml IVCONT 999 mls/hr 06/07/20 15:45 Basic Metabolic Panel Stat Complete Blood Count Auto Diff Stat Lipase Stat Liver Panel Stat 06/07/20 16:30 HYDROmorphone HCl [Dilaudid] 1 mg IVPUSH ONCE ONE 06/07/20 16:43 HYDROmorphone HCl [Dilaudid] 1 mg IVPUSH ONCE PRN 06/07/20 16:45 0.9 % Sodium Chloride [Ns] 1,000 ml IVCONT 999 mls/hr 0.9 % Sodium Chloride [Ns] 1,000 ml IVCONT 999 mls/hr 06/07/20 17:02 COVID-19 ID NOW ([place]) Stat Transfer Order Routine 06/07/20 Dinner Regular Diet 06/07/20 19:09 Morphine Sulfate 4 mg IVPUSH ONCE ONE methylPREDNISolone Sod Succ/PF [SOLU-MedroL] 125 mg IVPUSH ONCE ONE 06/08/20 07:21 Basic Metabolic Panel DAILY@0600 Complete Blood Count Auto Diff DAILY@0600 06/08/20 08:03 Butalb/Acetamin/Caff 50/325/40 [Fioricet] 1 tab PO ONCE ONE 06/08/20 Breakfast NPO Diet 06/08/20 Dinner Regular Diet 06/09/20 08:00 cefTRIAXone sodium [Rocephin] 2 gm 0.9 % Sodium Chloride [Ns] 50 ml IV ONCE 06/09/20 10:31 cefTRIAXone sodium [Rocephin] 2 gm .ROUTE .STK-MED ONE 06/09/20 10:52 Lidocaine HCl 2 % MPF [Xylocaine 2 % MPF] 5 ml .ROUTE .STK-MED ONE Midazolam HCl/PF [Versed] 2 mg .ROUTE .STK-MED ONE fentaNYL citrate/PF [Sublimaze] 50 mcg .ROUTE .STK-MED ONE propofoL [Diprivan] 200 mg IVPUSH .STK-MED ONE 06/09/20 10:56 iohexoL 300 MG/ML [Omnipaque 300 MG/ML] 50 ml IV .STK-MED ONE 06/09/20 11:26 dexAMETHasone sod phosphate [Decadron] 4 mg .ROUTE .STK-MED ONE 06/09/20 11:30 Ketorolac Tromethamine [Toradol] 30 mg .ROUTE .STK-MED ONE 06/09/20 11:46 Acetaminophen [Tylenol] 650 mg PO ONCE ONE Phenazopyridine HCL [Pyridium] 100 mg PO ONCE ONE Transfer Order Routine 06/09/20 12:44 Acetaminophen [Tylenol] 325 mg .ROUTE .STK-MED ONE HYDROmorphone HCl [Dilaudid] 0.5 mg .ROUTE .STK-MED ONE Phenazopyridine HCL [Pyridium] 100 mg .ROUTE .STK-MED ONE ondansetron HCL [Zofran] 4 mg .ROUTE .STK-MED ONE Laboratory Last Values WBC 6.6 X10*3/uL (4.8-10.8) 06/08/20 07:21 RBC 3.93 X10*6/uL (4.20-5.50) L 06/08/20 07:21 Hgb 12.5 g/dl (12.0-16.0) 06/08/20 07:21 Hct 37.0 % (37-47) 06/08/20 07:21 MCV 94.1 fL (80-98) 06/08/20 07:21 MCH 31.8 pg (27.0-33.0) 06/08/20 07: MCHC 33.8 g/dl (31.0-35.0) 06/08/20 07: RDW 12.2 % (11.0-16.0) 06/08/20 07:21 Plt Count 362 X10*3/uL (160-400) 06/08/20 07:21 MPV 9.5 fL (9.4-12.3) 06/08/20 07:21 Immature Gran % (Auto) 0.6 % (0.0-0.4) H 06/08/20 07: Neut % (Auto) 82.2 % (45-73) H 06/08/20 07: Lymph % (Auto) 15.7 % (20-40) L 06/08/20 07:21 [place] % (Auto) 1.1 % (2-11) L 06/08/20 07:21 Eos % (Auto) 0.2 % (0-4) 06/08/20 07:21 Baso % (Auto) 0.2 % (0-2) 06/08/20 07:21 Lymph # (Auto) 1.0 X10*3/uL (1.2-4.9) L 06/08/20 07:21 [place] # (Auto) 0.1 X10*3/uL (0.1-1.2) 06/08/20 07:21 Eos # (Auto) 0.0 X10*3/uL (0.0-0.4) 06/08/20 07:21 Baso # (Auto) 0.0 X10*3/uL (0.0-0.2) 06/08/20 07:21 Abs Immat Gran (auto) 0.04 X10*3/uL (0.00-0.03) H 06/08/20 07:21 Absolute Neuts (auto) 5.4 X10*3/uL (2.0-8.3) 06/08/20 07:21 Absolute Nucleated RBC 0.000 X10*3/uL (0.0-0.012) 06/08/20 07:21 Nucleated RBC % (auto) 0.0 /100WBC (0.0-0.2) 06/08/20 07:21 Sodium 140 mmol/L (135-145) 06/08/20 07:21 Potassium 4.6 mmol/l (3.3-5.1) 06/08/20 07:21 Chloride 107 mmol/L (96-108) 06/08/20 07:21 Carbon Dioxide 22 mmol/L (22-29) 06/08/20 07:21 Anion Gap 16 (12-20) 06/08/20 07:21 BUN 10 mg/dL (9-16) 06/08/20 07:21 Creatinine 0.72 mg/dL (0.5-1.4) 06/08/20 07:21 Estim Creat Clear Calc 59.9 06/08/20 07:21 Estimated GFR > 60 06/08/20 07:21 Random Glucose 137 mg/dL (60-115) H D 06/08/20 07:21 Calcium 8.7 mg/dL (8.4-10.2) D 06/08/20 07:21 Total Bilirubin 0.4 mg/dL (0.0-1.0) 06/07/20 15:45 Direct Bilirubin 0.2 mg/dL (0.0-0.5) 06/07/20 15:45 AST 19 U/L (5-31) 06/07/20 15:45 ALT 22 U/L (0-31) 06/07/20 15:45 Alkaline Phosphatase 66 U/L (39-117) 06/07/20 15:45 Total Protein 6.2 g/dL (6.5-8.0) L 06/07/20 15:45 Albumin 3.9 g/dL (3.5-5.0) 06/07/20 15:45 Lipase 25 U/L (8-78) 06/07/20 15:45 Urine Color YELLOW 06/07/20 16:08 Urine Appearance CLEAR 06/07/20 16:08 Urine pH 5.5 (5.0-8.0) 06/07/20 16:08 Ur Specific [place] 1.025 (1.005-1.025) 06/07/20 16:08 Urine Protein NEG MG/DL (NEG-TRACE) 06/07/20 16:08 Urine Glucose (UA) NEG MG/DL (NEG) 06/07/20 16:08 Urine Ketones 40 MG/DL (NEG) 06/07/20 16:08 Urine Blood 3+ (NEG) H 06/07/20 16:08 Urine Nitrite NEG (NEG) 06/07/20 16:08 Ur Leukocyte Esterase NEG (NEG) 06/07/20 16:08 Urine RBC 15-29 /HPF (0) H 06/07/20 16:08 Urine WBC 0-2 /HPF (0-4) 06/07/20 16:08 Ur Squamous Epith Cells NONE /LPF 06/07/20 16:08 Urine Bacteria NONE /LPF 06/07/20 16:08 Urine Mucus 1+ /LPF 06/07/20 16:08 COVID-19 ([facility]) Negative (Negative) 06/07/20 17:02 COVID-19 Clin Com See Note 06/07/20 17:02 Discharge Plan Discharge Patient Disposition: Home, Self-Care Referrals: Carrie Ford MD [Primary Care Provider] - Discharge Medications: New tramadol 50 mg tablet 50 mg PO Q6H PRN (Reason: pain) Qty: 14 RF: 0 Discharge Orders: Discharge Order (Routine); Ordered 06/09/20 Ordered By: Mike Davis Activity on Discharge: As tolerated Visit Report Forms: Patient Portal Discharge page Care Plan Goals: recovery Health Concerns: kidney stones Plan of Treatment: follow up with urology
--- NOTE | 2020-06-09 13:53 | MHC.CM.PN ---
Pt being discharged today, home with no services. pt will self arrange transportation
[2020-06-13 11:27] LABS: Stone Source KIDNEY STONE
== END 2020-06-09 16:20 | disposition home or self-care (01) | DRG 661 ==
LOC: HO.ED 16:42 → HO.S3 17:56
PROVIDERS: Physician Assistant Medical; Urology; Admitting Provider Internal Medicine; Emergency Provider Emergency Medicine; PCP Internal Medicine; Visit Provider Internal Medicine
PROC: 0T778DZ Dilation of Left Ureter with Intraluminal Device, Via Natural or Artificial Opening Endoscopic (ICD-10-PCS; principal; 2020-06-09 09:50)
DX: N13.2 Hydronephrosis with renal and ureteral calculous obstruction (principal); D72.829 Elevated white blood cell count, unspecified; Z85.41 Personal history of malignant neoplasm of cervix uteri; Z87.442 Personal history of urinary calculi; Z20.828 Contact with and (suspected) exposure to other viral communicable diseases; Z88.0 Allergy status to penicillin; Z79.891 Long term (current) use of opiate analgesic
CPT/HCPCS: 36415; 74176; 80048; 80076; 81001; 82365; 83690; 85025; 87635; 88300; 96361; 96374; 96375; 96376; 99284; 99285; C1758; C1769; C2617; J0696; J1100; J1170; J1885; J2250; J2405; J2930; J3010; Q9967

== ENCOUNTER → 2020-06-17 14:20 | Outpatient (BNVA) | payer MEDICARE, SELFPAY | PROVIDERS: Visit Provider Urology | DX: N13.2 Hydronephrosis with renal and ureteral calculous obstruction (principal); Z46.6 Encounter for fitting and adjustment of urinary device | CPT/HCPCS: 52000; 52310; 99212 ==

== ENCOUNTER 2022-01-04 09:06 | Outpatient (REF) | payer MEDICARE, SELFPAY ==
--- NOTE | ~2022-01-04 | US_ITS ---
EXAMINATION: US RETROPERITONEAL LIMITED (RENAL ONLY) CLINICAL INFORMATION: Calculus of kidney. COMPARISON: CT abdomen and pelvis without contrast 06/07/2020. TECHNIQUE: Real-time imaging of the kidneys. FINDINGS: RIGHT KIDNEY: 11.7 x 5.0 x 5.1 cm (SAG x AP x TRV). The kidney is normal in size, contour, and echogenicity. Renal cortical thickness is normal. No calculi or focal parenchymal lesions. No hydronephrosis. There may be a right extrarenal pelvis. LEFT KIDNEY: 11.4 x 4.8 x 4.5 cm (SAG x AP x TRV). The kidney is normal in size, contour, and echogenicity. Renal cortical thickness is normal. No calculi or focal parenchymal lesions. No hydronephrosis. There is mild fullness of the renal pelvis. US/US renal BI IMPRESSION: No stone seen.
== END 2022-01-04 09:07 | disposition home or self-care (01) ==
LOC: HO.US 09:06
PROVIDERS: Visit Provider Urology
DX: N20.0 Calculus of kidney (principal)
CPT/HCPCS: 76775

== ENCOUNTER 2023-11-28 16:51 | Emergency (ER) | payer MEDICARE, SELFPAY ==
--- NOTE | ~2023-11-28 | XR_ITS ---
EXAMINATION: XR FOREARM, LEFT CLINICAL INFORMATION: Laceration. COMPARISON: None available. TECHNIQUE: AP and lateral views of the left forearm were obtained. XR/XR forearm LT 2V FINDINGS / IMPRESSION: There is no fracture or dislocation. There is an apparent skin laceration within the mid aspect of the forearm adjacent to the ulna. There is no retained radiopaque foreign object.
[2023-11-28 16:58] VITALS: BP 110/64; PULSE 92; RESP 16; TEMP 36.6; O2SAT 97; BMI 25.5
[2023-11-28 19:35] VITALS: BP 140/77; PULSE 77; RESP 18; TEMP 36.4; O2SAT 100
--- NOTE | 2023-11-28 21:23 | ED.WOUNDLAC ---
HPI - Wound/Laceration General Chief Complaint: Wound/Laceration Stated Complaint: left arm laceration on thinners Time Seen by Provider: 11/28/23 21:11 Source: patient Mode of arrival: ambulatory Limitations: no limitations History of Present Illness ED Provider: samuel WAGNER narrative: patient is 73 years old on Eliquis for AFib apparently was walking outside tripped and fell on the rocks comes here with laceration right forearm no other injuries no headache no nausea no vomiting Related Data Previous Rx's ?Medication ?Instructions ?Recorded tramadol 50 mg tablet 50 mg PO Q6H PRN pain #14 tabs 06/09/20 prednisone 20 mg tablet 20 mg PO DAILY 5 days #5 tabs 12/18/21 tamsulosin 0.4 mg capsule 0.4 mg PO BEDTIME #14 caps 12/18/21 cephalexin 500 mg capsule 500 mg PO QID 10 days #40 caps 11/28/23 doxycycline hyclate 100 mg tablet 100 mg PO BID #20 tabs 11/28/23 Allergies Allergy/AdvReac Type Severity Reaction Status Date / Time ciprofloxacin Allergy Mild unknown Verified 11/28/23 17:01 Penicillins [PENICILLINS] Allergy Unknown RASH Verified 11/28/23 17:01 clindamycin AdvReac Nausea and Verified 11/28/23 17:01 Vomiting erythromycin base AdvReac Stomach Verified 11/28/23 17:01 Upset Review of Systems Review of Systems: Yes all other systems are reviewed and are negative [facility] Past Medical History Medical History Kidney calculi PFO (patent foramen ovale) Cervical cancer Surgical History Hx of eye surgery History of appendectomy Family History Family History Father Heart disease Social History Social History Household Members: Spouse Housing: House Do you presently have visiting nurse or other home services: No Alcohol intake: current Alcohol intake frequency: a few times a week Comment: spasm Smoked in Last 30 Days: No Use of substances other than those prescribed or required for medical reasons: No Substance Use Type: Marijuana Advance Directives: Yes Advance Directives Information Provided: No Advance Directives on File: No Do you have a plan to hurt others: No Plan service: No Current occupational status: employed Physical Exam Vital Signs: Vital Signs: Last Vital Signs Temp 97.5 F 11/28/23 22:07 Pulse 73 11/28/23 22:07 Resp 19 11/28/23 22:07 BP 127/78 11/28/23 22:07 Pulse Ox 94 11/28/23 22:07 O2 Del Method Room Air 11/28/23 22:07 BMI result Body Mass Index 25.5 Appearance: Alert. Oriented X3. No acute distress. Eyes: PERRLA, No Nystagmus ENT: Pharynx normal. Oral Mucosa moist atraumatic normocephalic Neck: Normal inspection. Neck supple. no midline tenderness CVS: Normal heart rate and rhythm. Pulses normal. Respiratory: No respiratory distress. Equal air entry bilateral, Abdomen: Soft and nontender. Skin: Skin warm and dry. Normal skin color. Normal skin turgor. Extremities: No lower extremity edema. No calf tenderness , punctured wound /laceration left forearm 3 cm long neurovascular intact Neuro: Oriented X 3. Medications Administered Discontinued Medications Generic Name Dose Route Start Last Admin Trade Name Freq PRN Reason Stop Dose Admin Bacitracin 1 appl 11/28/23 21:51 11/28/23 21:53 Bacitracin Oint 0.9 Gm Packet TOPICAL 11/28/23 21:52 1 appl ONCE ONE Administration Protocol Cephalexin HCl 500 mg 11/28/23 21:58 11/28/23 22:02 Cephalexin 500 Mg Capsule PO 11/28/23 21:59 500 mg ONCE ONE Administration Doxycycline Monohydrate 100 mg 11/28/23 21:58 11/28/23 22:02 Doxycycline Monohydrate 100 Mg Capsule PO 11/28/23 21:59 100 mg ONCE ONE Administration Medical Decision Making Independent Interpretation I performed an independent interpretation of an: Plain X-Ray Interpretation: negative Radiology Impression Discussion of test interpretation with radiology: I have reviewed the radiologist's reading. Procedures Laceration Laceration 1: Site: upper extremity Side (If applicable): left Size (cm): 3 Description: stellate and irregular Depth: simple, single layer Local Anesthetic: lidocaine 1% Amount of anesthesia used (mL): 5 Pre-repair: irrigated extensively and deep structures intact Skin layer closed with: nylon Size (cm): 5-0 Number of sutures: 3 Technique: simple, interrupted Discharge Plan Discharge Clinical Impression: Laceration Patient Disposition: Home, Self-Care Instructions: Laceration (ED) Additional Instructions: Local care as advised suture removal in 10-14 day take prophylactic antibiotic as advised Prescriptions: New cephalexin 500 mg capsule 500 mg PO QID 10 Days Qty: 40 0RF doxycycline hyclate 100 mg tablet 100 mg PO BID Qty: 20 0RF No Action prednisone 20 mg tablet 20 mg PO DAILY 5 Days Qty: 5 0RF tamsulosin 0.4 mg capsule 0.4 mg PO BEDTIME Qty: 14 0RF tramadol 50 mg tablet 50 mg PO Q6H PRN (Reason: pain) Qty: 14 0RF Interventions: ED Discharge Assessment Last Done: 11/28/23 22:07 Discharge Date/Time: 11/28/23 22:08 Print Language: Slovak
[2023-11-28] MEDS: Bacitracin Oint 0.9 GM PACKET 1 APPL TOPICAL (21:53)
--- NOTE | 2023-11-28 21:55 | PC.NURSE ---
wound cleaned, xray taken, sutured by MD Mascorro, bacitracin and nonstick dressing applied
[2023-11-28] MEDS: cephALEXin 500 MG CAPSULE PO (22:02)
[2023-11-28] MEDS: Doxycycline Monohydrate 100 MG CAPSULE PO (22:02)
[2023-11-28 22:03] VITALS: BP 127/78; PULSE 73; RESP 19; TEMP 36.4; O2SAT 94
[2023-11-28 22:07] VITALS: BP 127/78; PULSE 73; RESP 19; TEMP 36.4; O2SAT 94
== END 2023-11-28 22:08 | disposition home or self-care (01) ==
PROVIDERS: Emergency Provider Internal Medicine
DX: S51.811A Laceration without foreign body of right forearm, initial encounter (principal); W18.31XA Fall on same level due to stepping on an object, initial encounter; Y93.01 Activity, walking, marching and hiking; Y92.9 Unspecified place or not applicable; Y99.9 Unspecified external cause status
CPT/HCPCS: 12002; 73090; 99283; 99284

== ENCOUNTER 2024-05-01 07:06 | Emergency (ER) | payer MEDICARE, SELFPAY ==
--- NOTE | ~2024-05-01 | CT_ITS ---
EXAMINATION: CT ABDOMEN AND PELVIS WITHOUT CONTRAST CLINICAL INFORMATION: Flank pain. COMPARISON: CT dated June 07, 2020. TECHNIQUE: Multidetector volumetric imaging was performed from the superior aspect of the liver through the pubic symphysis. Sagittal and coronal reformatted images were obtained on the technologist's workstation. This CT examination was performed using dose optimization techniques as appropriate, variously including the following: *Automated exposure control *Adjustment of mA and/or kV according to patient size (this includes techniques or standardized protocols for targeted exams where dose is matched to indication/reason for exam; i.e. extremities or head) *Use of iterative reconstruction technique DLP: 400 mGy-cm FINDINGS: Limited evaluation of the intra-abdominal organs and vascular structures due to lack of IV contrast. Subsegmental atelectasis, lung bases. Patchy groundglass in the periphery of the right lung base. LIVER, GALLBLADDER, AND BILIARY TREE: Liver measures 14 cm. No pericholecystic fluid collection or gallbladder wall thickening. No intrahepatic or extrahepatic biliary ductal dilatation. PANCREAS: No peripancreatic fluid collections. No main pancreatic ductal dilatation. SPLEEN: Measures 8 cm. ADRENAL GLANDS: No nodular lesions. KIDNEYS AND URETERS: No renal calculi. No hydronephrosis. Extrarenal pelvises, bilaterally. Probable parapelvic renal cysts. BLADDER: Fluid-filled. GASTROINTESTINAL TRACT: Abundant stool within the large intestine. No intestinal obstruction pattern. Probable appendectomy procedure. No ascites. No pneumoperitoneum. No pneumatosis intestinalis. ABDOMINAL WALL: Small fat-containing umbilical hernia. LYMPH NODES: No lymphadenopathy, mesenteric or retroperitoneal. VASCULAR: Calcified plaques in the abdominal aorta wall and iliac arteries without aneurysm. PELVIC VISCERA: Calcifications in the uterus with a nodular component. OSSEOUS STRUCTURES: Castellvi type III sacralization. Grade 1 anterolisthesis L5-S1. Tarlov cyst, left S1. CT/CT abdomen pelvis wo IV con IMPRESSION: No hydronephrosis or nephrolithiasis. Grade 1 anterolisthesis L5-S1 on a degenerative basis. Small fat-containing umbilical hernia. Calcified uterine fibroids. Atelectasis versus airspace disease, right lung base. Fleischner guidelines were followed. Electronically signed by: Mark Chu MD 05/01/2024 08:22 AM [facility]
[2024-05-01 07:09] VITALS: BP 130/68; PULSE 73; RESP 18; TEMP 36.4; O2SAT 98; BMI 26.2
--- NOTE | 2024-05-01 07:42 | ED_ITS ---
HPI - General Adult General Chief complaint: Abdominal Pain Stated complaint: Kidney stone Time Seen by Provider: 05/01/24 07:42 Source: patient Mode of arrival: ambulatory Limitations: no limitations History of Present Illness ED Provider: Sharona Bunn PA-C HPI narrative: 73-year-old female with a PMH of atrial fibrillation on Eliquis, mast cell syndrome, and kidney stones in 2020 presents to the ED today with kidney stone pain since 3 am 05/01 that started in her right lower back and has not moved to her suprapubic area. She called her urologist at 6 am this morning who recommended she come to the emergency department. Her last episode of kidney stones was in 2020 where she underwent ureteral cath and lithrotripsy with Dr. Warner. Patient's pain waxes and wanes. She tries Tylenol with little help. Her last dose of Eliquis was last night. Endorses nausea, chills, and diarrhea. Denies fever, vomiting, SOB or chest pain. Onset (ago): hour(s) Relieving factors: none Exacerbating factors: none Associated symptoms: denies other symptoms Treatments prior to arrival: none Related Data Previous Rx's ?Medication ?Instructions ?Recorded tramadol 50 mg tablet 50 mg PO Q6H PRN pain #14 tabs 06/09/20 prednisone 20 mg tablet 20 mg PO DAILY 5 days #5 tabs 12/18/21 tamsulosin 0.4 mg capsule 0.4 mg PO BEDTIME #14 caps 12/18/21 cephalexin 500 mg capsule 500 mg PO QID 10 days #40 caps 11/28/23 doxycycline hyclate 100 mg tablet 100 mg PO BID #20 tabs 11/28/23 Allergies Allergy/AdvReac Type Severity Reaction Status Date / Time ciprofloxacin Allergy Mild unknown Verified 11/28/23 17:01 Penicillins [PENICILLINS] Allergy Unknown RASH Verified 11/28/23 17:01 citric acid Allergy Headache Verified 05/01/24 07:12 clindamycin AdvReac Nausea and Verified 11/28/23 17:01 Vomiting erythromycin base AdvReac Stomach Verified 11/28/23 17:01 Upset Review of Systems 2 Constitutional: Constitutional: Denies chills, Denies fever(s) and Denies night sweats Eyes: Eyes: Reports no additional eye complaints, Denies blurry vision, Denies change in vision, Denies diplopia, Denies eye discharge, Denies loss of vision and Denies eye pain ENT: Denies dizziness Cardiovascular: Cardiovascular: Reports no additional cardiovascular complaints, Denies chest pain, Denies lightheadedness, Denies Loss of Consciousness and Denies dyspnea Respiratory: Respiratory: Reports no additional respiratory complaints and Denies dyspnea Gastrointestinal: Gastrointestinal: Reports no additional gastrointestinal complaints, Reports abdominal pain (suprapubic ), Denies melena, Denies hematochezia, Denies change in bowel habits, Reports change in stool character and Reports diarrhea (1 bout of loose stools this morning) Genitourinary: Genitourinary: Denies hematuria, Denies urinary frequency, Denies dysuria, Reports flank pain (right sided), Denies urinary incontinence, Denies urinary hesitancy and Denies urinary urgency Musculoskeletal: Musculoskeletal: Reports no additional musculoskeletal complaints, Reports back pain, Denies numbness and Denies tingling Neurologic: Denies dizziness, Denies loss of vision, Denies numbness and Denies tingling Psychiatric: Psychiatric: Reports no additional psychiatric complaints Endocrine: Endocrine: Reports no additional endocrine complaints Hematologic/Lymphatic: Hematologic/Lymphatic: Reports no additional hematologic/lymphatic complaints Allergic/Immunologic: Allergic/Immunologic: Reports no additional allergic/immunologic complaints [facility] Past Medical History Attestation statement: The following information was validated with the patient. Source: old records reviewed and nursing notes reviewed Medical History Kidney calculi PFO (patent foramen ovale) Cervical cancer Surgical History Hx of eye surgery History of appendectomy Family History Family History Father Heart disease Social History Social History Household Members: Spouse Housing: House Do you presently have visiting nurse or other home services: No Alcohol intake: current Alcohol intake frequency: holidays/special occasions only Alcohol type: wine Comment: spasm Substance Use Type: Marijuana service: No Current occupational status: employed Physical Exam ED Vital Signs: Vital Signs - 24 hr 05/01/24 07:09 05/01/24 09:32 Temperature 97.5 F 97.5 F Pulse Rate 73 65 Respiratory Rate 18 16 Blood Pressure 130/68 114/59 L Pulse Oximetry 98 98 Oxygen Delivery Method Room Air Room Air BMI result Body Mass Index 26.2 Const General: cooperative, no acute distress, alert and awake Nutritional Appearance: well nourished Orientation/consciousness: patient oriented x3 Limitations: no limitations HENMT Head: Yes normal to inspection and Yes atraumatic Ears: hearing grossly normal bilaterally and external ears normal General nose exam: Normal external nose present, no nasal discharge noted and no epistaxis Face and sinus: Yes normal facial exam, No abrasion and No laceration Mouth: Normal oral and palatal mucosa present, no drooling and no muffled voice Eyes General: appearance normal, both eyes and all related structures Periorbital: periorbital findings normal Eyelids: Yes eyelids normal Conjunctivae: conjunctivae normal Pupils: Equal, round and reactive pupils present EOM: EOMs intact bilaterally Neck Neck: Yes normal visual inspection, Yes full ROM and Yes no lymphadenopathy Chest Chest palpation & inspection: normal inspection of the chest Resp Effort & Inspection: normal respiratory effort and able to speak in complete sentences Cardio Rate: regular rate Rhythm: regular rhythm GI Inspection: Yes normal to inspection General: Yes no CVA tenderness Back/Spine/Pelvis Back: no CVA tenderness and No back tenderness Neuro General: patient oriented x3 and moves all extremities Cranial nerves: Yes Equal, round and reactive pupils present Cognition (Neuro): normal cognition Extrem General: Yes normal to inspection, Yes full ROM and Yes capillary refill normal Psych Appearance: grossly normal Mental Status: mental status grossly normal Affect: normal affect Attitude: cooperative Thought process: Normal thought process present Thought content: Normal thought content present Insight: Good insight present (Psych) Medical Decision Making Medical Decision Making MDM Narrative: Patient is a 73 year old assigned female at with a history of atrial fib on Eliquis, kidney stones, and mast cell syndrome presenting to the emergency department today with right flank pain and concerns of an obstructing stone. Patient's physical exam was as noted in the physical exam portion of this note. Patient's blood work was unremarkable. Patient's urine showed no acute process. Patient's CT abd/pelvis showed no acute process. I explained my physical exam findings as well as all test results to the patient. I answered all questions asked by the patient. I stressed the importance of the patient taking her medication as directed (either prescribed or as the over the counter packaging recommends). I stressed the importance of the patient following up with her primary care provider. I stressed the importance of the patient returning to the emergency department immediately if her symptoms were to worsen or if she were to develop any dizziness, shortness of breath, difficulty breathing, chest pain, blurry vision, loss of vision, nausea, vomiting, abdominal pain, fever, chills, back pain, or any other complaints. Patient verbalized agreement and understanding with this treatment plan and discharge. Differential Diagnosis Differential Diagnoses: The differential diagnosis associated with the presentation includes Flank pain UTI Constipation Kidney stone Admission/Observation Consideration of admission/observation: Escalation of care including admission/observation considered Patient would have been admitted to the hospital had her work up had any findings where hospital admission was appropriate and her clinical presentation warranted hospital admission. Lab Data [facility] Lab Attestation statement: I reviewed the patient's lab results. My interpretation of these results are in the [facility] Rationale portion of this note. 05/01/24 08:12 05/01/24 08:12 Labs: Lab Results 05/01/24 05/01/24 Range/Units 07:43 08:12 WBC 6.3 (4.8-10.8) X10*3/uL RBC 3.96 L (4.20-5.50) X10*6/uL Hgb 12.5 (12.0-16.0) g/dl Hct 36.4 L (37.0-47.0) % MCV 91.9 (80.0-98.0) fL MCH 31.6 (27.0-33.0) pg MCHC 34.3 (31.0-35.0) g/dl RDW 12.2 (11.0-16.0) % Plt Count 318 (160-400) X10*3/uL MPV 8.8 L (9.4-12.3) fL Immature Gran % (Auto) 0.3 (0.0-0.4) % Neut % (Auto) 54.2 (45-73) % Lymph % (Auto) 32.2 (20-40) % [place] % (Auto) 6.5 (2-11) % Eos % (Auto) 6.0 H (0-4) % Baso % (Auto) 0.8 (0-2) % Lymph # (Auto) 2.0 (1.2-4.9) X10*3/uL [place] # (Auto) 0.4 (0.1-1.2) X10*3/uL Eos # (Auto) 0.4 (0.0-0.4) X10*3/uL Baso # (Auto) 0.1 (0.0-0.2) X10*3/uL Abs Immat Gran (auto) 0.02 (0.00-0.03) X10*3/uL Absolute Neuts (auto) 3.4 (2.0-8.3) x10*3/uL Absolute Nucleated RBC 0.000 (0.0-0.012) X10*3/uL Nucleated RBC % (auto) 0.0 (0.0-0.2) /100WBC Sodium 133 L (135-145) mmol/L Potassium 4.3 (3.3-5.1) mmol/L Chloride 102 (96-108) mmol/L Carbon Dioxide 27 (22-29) mmol/L Anion Gap 8 L (12-20) BUN 15 (9-16) mg/dL Creatinine 0.65 (0.5-1.4) mg/dL Estim Creat Clear Calc 70.2 Estimated GFR > 60 Random Glucose 92 (60-115) mg/dL Calcium 9.2 (8.4-10.2) mg/dL Magnesium 2.0 (1.6-2.6) mg/dL Total Bilirubin 0.5 (0.0-1.0) mg/dL AST 28 (5-31) U/L ALT 30 (0-31) U/L Alkaline Phosphatase 78 (39-117) U/L Total Protein 6.6 (6.5-8.0) g/dL Albumin 3.9 (3.5-5.0) g/dL Urine Color Yellow Urine Appearance Clear Urine pH 6.5 (5.0-9.0) Ur Specific [place] <= 1.005 (1.005-1.025) Urine Protein Negative (Neg-Trace) mg/dL Urine Glucose (UA) Negative (Negative) mg/dL Urine Ketones Negative (Negative) mg/dL Urine Blood Trace H (Negative) Urine Nitrite Negative (Negative) Ur Leukocyte Esterase Negative (Negative) Urine RBC 0-2 (0-2) /HPF Urine WBC 0-5 (0-5) /HPF Ur Squamous Epith Cells 0-2 (0-2) /HPF Urine Bacteria None Seen (None Seen) Hyaline Casts 0-2 (0-2) /LPF Independent Interpretation I performed an independent interpretation of an: CT Scan Interpretation: EXAMINATION: CT ABDOMEN AND PELVIS WITHOUT CONTRAST CLINICAL INFORMATION: Flank pain. COMPARISON: CT dated June 07, 2020. TECHNIQUE: Multidetector volumetric imaging was performed from the superior aspect of the liver through the pubic symphysis. Sagittal and coronal reformatted images were obtained on the technologist's workstation. This CT examination was performed using dose optimization techniques as appropriate, variously including the following: *Automated exposure control *Adjustment of mA and/or kV according to patient size (this includes techniques or standardized protocols for targeted exams where dose is matched to indication/reason for exam; i.e. extremities or head) *Use of iterative reconstruction technique DLP: 400 mGy-cm FINDINGS: Limited evaluation of the intra-abdominal organs and vascular structures due to lack of IV contrast. Subsegmental atelectasis, lung bases. Patchy groundglass in the periphery of the right lung base. LIVER, GALLBLADDER, AND BILIARY TREE: Liver measures 14 cm. No pericholecystic fluid collection or gallbladder wall thickening. No intrahepatic or extrahepatic biliary ductal dilatation. PANCREAS: No peripancreatic fluid collections. No main pancreatic ductal dilatation. SPLEEN: Measures 8 cm. ADRENAL GLANDS: No nodular lesions. KIDNEYS AND URETERS: No renal calculi. No hydronephrosis. Extrarenal pelvises, bilaterally. Probable parapelvic renal cysts. BLADDER: Fluid-filled. GASTROINTESTINAL TRACT: Abundant stool within the large intestine. No intestinal obstruction pattern. Probable appendectomy procedure. No ascites. No pneumoperitoneum. No pneumatosis intestinalis. ABDOMINAL WALL: Small fat-containing umbilical hernia. LYMPH NODES: No lymphadenopathy, mesenteric or retroperitoneal. VASCULAR: Calcified plaques in the abdominal aorta wall and iliac arteries without aneurysm. PELVIC VISCERA: Calcifications in the uterus with a nodular component. OSSEOUS STRUCTURES: Castellvi type III sacralization. Grade 1 anterolisthesis L5-S1. Tarlov cyst, left S1. CT/CT abdomen pelvis wo IV con IMPRESSION: No hydronephrosis or nephrolithiasis. Grade 1 anterolisthesis L5-S1 on a degenerative basis. Small fat-containing umbilical hernia. Calcified uterine fibroids. Atelectasis versus airspace disease, right lung base. Fleischner guidelines were followed. Electronically signed by: Mark Chu MD 05/01/2024 08:22 AM EST Dictated By: Mark Deleon Signed By: Electronically signed by Mark Lee 05/01/24 0822 Radiology Impression Discussion of test interpretation with radiology: I have reviewed the radiologist's reading. Discharge Plan Discharge Clinical Impression: Flank pain Patient Disposition: Home, Self-Care Instructions: Flank Pain (ED) Additional Instructions: Follow up with your primary care provider. Return to the emergency department immediately if your symptoms worsen or if you develop any dizziness, shortness of breath, difficulty breathing, chest pain, blurry vision, loss of vision, nausea, vomiting, abdominal pain, fever, chills, back pain, or any other complaints. Prescriptions: No Action prednisone 20 mg tablet 20 mg PO DAILY 5 Days Qty: 5 0RF tamsulosin 0.4 mg capsule 0.4 mg PO BEDTIME Qty: 14 0RF tramadol 50 mg tablet 50 mg PO Q6H PRN (Reason: pain) Qty: 14 0RF cephalexin 500 mg capsule 500 mg PO QID 10 Days Qty: 40 0RF doxycycline hyclate 100 mg tablet 100 mg PO BID Qty: 20 0RF Referrals: [facility] [place] Family Medicine [Provider Group] (Call to establish and follow up with a primary care provider. If you already have a primary care provider, please follow up with them.) [facility] [place] [facility] [Provider Group] (Call to establish and follow up with a primary care provider. If you already have a primary care provider, please follow up with them.) [facility] [place] [facility] [Provider Group] (Call to establish and follow up with a primary care provider. If you already have a primary care provider, please follow up with them.) Interventions: ED Discharge Assessment Last Done: 05/01/24 09:32 Discharge Date/Time: 05/01/24 09:33 Print Language: Belarusian
[2024-05-01 07:49] LABS: Appearance Urine Clear; Color Urine Yellow; Glucose Urine UA Negative (Negative); Leukocyte Esterase Urine Negative (Negative); Nitrite Urine Negative (Negative); PH 6.5 (5.0-9.0); Specific Gravity - Urine <= 1.005 (1.005-1.025); UMIC TRIGGER UACC YES; Urine Blood Trace (Negative); Urine Ketones Negative (Negative); Urine Protein Negative (Neg-Trace)
--- NOTE | 2024-05-01 07:49 | PC.NURSE ---
pt a&ox3, vss, pt c/o 11/03 rlq abd pain with mild nausea, pt states I think the stone moved down because my pain has gotten better urine obtained and sent to lab, call [facility], pt awaiting provider eval, will continue to monitor.
[2024-05-01 07:54] LABS: Bacteria Urine None Seen (None Seen); Hyaline Casts Urine 0-2 /LPF (0-2); RBC Urine 0-2 /HPF (0-2); Squamous Epithelial Cell Urine 0-2 /HPF (0-2); WBC Urine 0-5 /HPF (0-5)
--- NOTE | 2024-05-01 08:16 | PC.NURSE ---
labs drawn by tech
[2024-05-01 08:18] LABS: MANUAL DIFF FLAG NO
[2024-05-01 08:27] LABS: Basophils Absolute Auto 0.1 X10*3/uL (0.0-0.2); Basophils Percent Auto 0.8 % (0-2); Eosinophils Absolute Auto 0.4 X10*3/uL (0.0-0.4); Hematocrit 36.4 % (37.0-47.0); Hemoglobin 12.5 g/dl (12.0-16.0); Imm Gran Abs Auto 0.02 X10*3/uL (0.00-0.03); Imm Gran Pct Auto 0.3 % (0.0-0.4); Lymphocytes Percent Auto 32.2 % (20-40); Mean Corpuscular HGB Conc 34.3 g/dl (31.0-35.0); Mean Corpuscular Hemoglobin 31.6 pg (27.0-33.0); Mean Corpuscular Volume 91.9 fL (80.0-98.0); Mean Platelet Volume 8.8 fL (9.4-12.3); Monocytes Absolute Auto 0.4 X10*3/uL (0.1-1.2); Monocytes Percent Auto 6.5 % (2-11); Neutrophils Absolute Auto 3.4 x10*3/uL (2.0-8.3); Neutrophils Percent Auto 54.2 % (45-73); Platelet Count 318 X10*3/uL (160-400); Red Blood Count 3.96 X10*6/uL (4.20-5.50); Red Cell Distribution Width 12.2 % (11.0-16.0); White Blood Count 6.3 X10*3/uL (4.8-10.8)
[2024-05-01 08:53] LABS: Alanine Aminotransferase 30 U/L (0-31); Albumin Level 3.9 g/dL (3.5-5.0); Alkaline Phosphatase 78 U/L (39-117); Anion Gap 8 (12-20); Aspartate Amino Transferase 28 U/L (5-31); Bilirubin Total 0.5 mg/dL (0.0-1.0); Blood Urea Nitrogen 15 mg/dL (9-16); Calcium 9.2 mg/dL (8.4-10.2); Carbon Dioxide 27 mmol/L (22-29); Chloride 102 mmol/L (96-108); Creatinine Clr Calc Pharmacy 70.2; Estimated Glomerular Filt Rate > 60; Glucose Random 92 mg/dL (60-115); Potassium 4.3 mmol/L (3.3-5.1); Sodium 133 mmol/L (135-145); Total Protein 6.6 g/dL (6.5-8.0)
[2024-05-01 09:32] VITALS: BP 114/59; PULSE 65; RESP 16; TEMP 36.4; O2SAT 98
== END 2024-05-01 09:33 | disposition home or self-care (01) ==
PROVIDERS: Physician Assistant Medical; Emergency Provider Emergency Medicine
DX: R10.2 Pelvic and perineal pain (principal); I48.91 Unspecified atrial fibrillation; R11.2 Nausea with vomiting, unspecified; M54.50 Low back pain, unspecified; Z79.01 Long term (current) use of anticoagulants; Z79.899 Other long term (current) drug therapy
CPT/HCPCS: 36415; 74176; 80053; 81001; 83735; 85025; 99284

== ENCOUNTER → 2024-05-01 07:42 | Outpatient (BNV) | payer MEDICARE, SELFPAY | PROVIDERS: Emergency Provider Emergency Medicine; Visit Provider Radiology Diagnostic Radiology | DX: R10.9 Unspecified abdominal pain (principal) | CPT/HCPCS: 74176 ==